=== PATIENT | male | born 1950 | race Caucasian/White ===

== ENCOUNTER → 2017-05-28 | Outpatient (CLI) | payer OTHER, BC ==
[~2017-05-28] MED LIST: ACET-1311 PO; COEN1CAP17 PO; OMEG10007 PO; XRL10 PO
[2017-05-28 11:24] LABS: BLOOD UREA NITROGEN 11 mg/dl (7-18); BUN/CREATININE RATIO 9.6 (10-20); CALCIUM 8.9 mg/dl (8.5-10.1); CARBON DIOXIDE 32 mmol/L (21-32); CHLORIDE 106 mmol/L (98-107); CHOLESTEROL 220 mg/dl (0-200); CHOLESTEROL/HDL RATIO 3.3; CREATININE 1.09 mg/dl (0.60-1.40); GLUCOSE 79 mg/dl (70-99); HDL CHOLESTEROL 66 mg/dl; LDL CHOLESTEROL CALCULATED 141 mg/dl; POTASSIUM 4.5 mmol/L (3.5-5.1); SODIUM 141 mmol/L (136-145); TRIGLYCERIDES 66 mg/dl (0-150); VERY LOW DENSITY LIPOPROT CALC 13 mg/dl
== END | disposition home or self-care (01) ==
LOC: C.LABBC 07:50
PROVIDERS: ATTEND Internal Medicine
DX: E78.5 Hyperlipidemia, unspecified (principal); E03.9 Hypothyroidism, unspecified; Z12.5 Encounter for screening for malignant neoplasm of prostate